=== PATIENT | male | born 1980 | race Caucasian/White ===

== ENCOUNTER 2022-01-14 06:26 | Inpatient (IN) | payer BC, SELFPAY ==
[2022-01-14] VITALS (13 sets, daily range): BP systolic 129–155; BP diastolic 78–106; PULSE 75–89; RESP 14–20; TEMP 36.2–36.8; O2SAT 96–100
--- NOTE | ~2022-01-14 | CT_ITS ---
EXAMINATION: CT abdomen pelvis wo con DATE: 01/14/2022 07:41 INDICATION: Left flank pain. TECHNIQUE: Computed tomography (CT) of the abdomen and pelvis was performed without intravenous contr ast. Automated exposure control and iterative reconstruction technique were employed. The dose-length product was 415.37 mGy-cm. COMPARISON: CT abdomen and pelvis 09/28/2018 FINDINGS: The visualized portions of the lung bases demonstrate mild atelectasis. No pleural effusion . The heart size is normal. No pericardial effusion. There is diffuse hepatic steatosis. The gallblad aleja, spleen, pancreas, adrenal glands, and kidneys are normal. There is a left inguinal hernia contai apolonia fat. The appendix is normal. There are no dilated loops of bowel. There is free gas around the s plenic flexure of the colon. There are no pathologically enlarged lymph nodes. There is no free intra peritoneal fluid. There is mild lumbar spondylosis and moderate thoracic spondylosis. IMPRESSION: 1. Free gas around the splenic flexure of the colon, consistent with perforation. 2. Left inguinal hernia containing fat. 3. Diffuse hepatic steatosis. Reviewed, dictated and finalized at location A. IMPRESSION: 1. Free gas around the splenic flexure of the colon, consistent with perforatio n. 2. Left inguinal hernia containing fat. 3. Diffuse hepatic steatosis.
--- NOTE | ~2022-01-14 | XR_ITS ---
EXAMINATION: XR abdomen/kub 1V DATE: 01/15/2022 05:49 INDICATION: Colon perforation. TECHNIQUE: A supine view of the abdomen on 3 radiographs was obtained. COMPARISON: CT abdomen and pelvis 01/14/22 FINDINGS: There are no dilated loops of bowel. There is extraluminal gas around splenic flexure of th e colon. There are phleboliths in the pelvis. IMPRESSION: 1. Extraluminal gas again seen around the splenic flexure of the colon. Reviewed, dictated and finalized at location A.
[2022-01-14 07:01] LABS: Basophils Absolute Auto 0.1 K/mm3 (0.0-0.1); Basophils Percent Auto 0.7 % (0.2-1.2); Eosinophils Absolute Auto 0.3 K/mm3 (0-0.3); Eosinophils Percent Auto 3.4 % (0-4.4); Hematocrit 45.8 % (42.0-52.0); Hemoglobin 15.4 g/dL (14.0-18.0); Immature Granulocyte Absolute 0.04 K/mm3 (0.00-0.031); Immature Granulocyte Percent A 0.5 % (0-0.5); Lymphocytes Absolute Auto 1.79 K/mm3 (0.9-3.2); Lymphocytes Percent Auto 23.7 % (18.3-44.2); Mean Corpuscular HGB Conc 33.6 g/dl (32-36); Mean Corpuscular Hemoglobin 29.1 pg (26-34); Mean Corpuscular Volume 86.6 fl (80-100); Mean Platelet Volume 10.4 fl (7.4-10.4); Monocytes Absolute Auto 0.5 K/mm3 (0.1-0.6); Monocytes Percent Auto 6.6 % (2.6-8.5); Neutrophils Absolute Auto 4.9 K/mm3 (1.3-6.7); Neutrophils Percent Auto 65.1 % (45.5-73.1); Platelet Count Result 248 k/mm3 (150-375); Red Blood Count 5.29 M/mm3 (4.6-6.20); Red Cell Distribution Width 12.5 % (11.5-14.5); White Blood Count 7.5 K/mm3 (4.5-10.0)
--- NOTE | 2022-01-14 07:06 | PC.NURSE ---
Report given to Elaina ZEPEDA
[2022-01-14 07:20] LABS: Appearance Urine Clear (Clear); Bilirubin Urine Negative (Negative); Blood Urine Negative (Negative); Color Urine Yellow (Yellow); Glucose Urine UA Negative (Negative); Ketones Urine Negative (Negative); Leukocyte Esterase Ur Negative LEU/UL (Negative); Nitrate Urine Negative (Negative); Protein Urine Negative (Negative); Urobilinogen Urine 0.2 mg/dL (<2.0)
[2022-01-14 07:22] LABS: Add Urine Microscopic? NO
[2022-01-14 07:24] LABS: Alanine Aminotransferase 40 U/L (6-50); Albumin Level 4.1 g/dL (3.5-5.1); Alkaline Phosphatase 69 U/L (38-126); Anion Gap 7 mmol/L (8-16); Aspartate Amino Transferase 36 U/L (17-59); Bilirubin,Total 0.5 mg/dL (0.2-1.3); Blood Urea Nitrogen 14 mg/dL (9-20); Carbon Dioxide 26 mmol/L (22-30); Chloride 106 mmol/L (98-107); Estimated CRCL calculation 93 ml/min; Estimated Glomerular Filt Rate > 60; Glucose 104 mg/dL (65-110); Potassium 4.1 mmol/L (3.4-5.0); Sodium 139 mmol/L (137-145)
--- NOTE | 2022-01-14 07:25 | ED.GENADULT ---
HPI - General Adult General Chief complaint: Unspecified Stated complaint: Side Pain radiates into testicle Time Seen by Provider: 01/14/22 06:56 History of Present Illness HPI narrative: 41-year-old male history of back pain presenting to the emergency department for evaluation of left flank pain that radiates around to his left lower quadrant and to his left testicle. Patient states pain has been intermittent over the last week. Patient denies any prior history of kidney stones. Patient denies any nausea vomiting diarrhea. Patient denies any blood in his urine. Patient does report previous history of H. pylori gastric ulcer. Related Data Home Medications Medication Instructions Recorded Confirmed No Home Medications 01/14/22 01/14/22 Allergies Allergy/AdvReac Type Severity Reaction Status Date / Time Penicillins Allergy Mild Rash Verified 01/14/22 09:27 Review of Systems Review of Systems: CONSTITUTIONAL: Denies fever, chills, or sweats. EYES: Denies visual changes, redness, or discharge. ENT: Denies rhinorrhea, congestion, sore throat, or otalgia. CARDIOVASCULAR: Denies chest pain, palpitations, or edema. RESPIRATORY: Denies cough or dyspnea. GASTROINTESTINAL: See HPI GENITOURINARY: See HPI SKIN: Denies rash or itching. MUSCULOSKELETAL: Denies back pain, joint pain, or myalgia. NEUROLOGIC: Denies headache, numbness, or weakness. PMFSH Past Medical History Medical History No pertinent past medical history Surgical History Surgical History History of inguinal hernia repair as an infant Family History Family History (Updated 01/14/22 @ 09:38 by Miranda Sanford RN) Grandparent Diabetes mellitus Hypertension Family history of coronary artery disease Social History Social History Smoking status: Never smoker Alcohol intake: current Drinks per week: 2 Substance use: never Occupation/Education: occupation Gender identity (if verbalized by the patient): Male Spiritual care concerns: No Exam Narrative: APPEARANCE: Well appearing, no pain, no distress, well-nourished. HEAD: normocephalic, atraumatic. EYES: PERRLA/EOMI, conjunctivae clear. NOSE: Normal no drainage NECK: Supple. No adenopathy, no masses. RESPIRATORY: Airway patent, respirations nonlabored. Clear to auscultation bilaterally, no rales, rhonchi, wheezing. CARDIOVASCULAR: Regular rate and rhythm without murmurs rubs or gallops. ABDOMINAL: Soft, nontender, nondistended, normal bowel sounds. No reproducible left CVA tenderness or left lower quadrant tenderness to palpation. No evidence of peritonitis MUSCULOSKELETAL: Moves all extremities. Strength/ROM intact, No edema, No calf tenderness. NEURO: Alert. Cranial nerves II through XII intact. Grossly intact SKIN: Warm, dry. Normal Color Course Course Emergency Course: CT showed evidence of colonic perforation. Patient denies any falls or injuries. Patient denies any prior history of diverticulitis. Patient denies any foreign bodies inserted rectally. Patient's last meal was at approximately 530 last night. Patient did have some water this morning. CT result was discussed with Dr. Holloway. Wanted the patient started on antibiotics. Anticipates patient will go to surgery later today. Dr. Holloway did want the hospitalist involved on the case. I discussed the case with Dr. Arellano and he is willing to see the patient as consult but does not want to admit the patient primarily. Vital Signs Vital signs: Vital Signs Temperature 97.2 F L 01/14/22 06:33 Pulse Rate 80 01/14/22 06:33 Respiratory Rate 20 01/14/22 06:33 Blood Pressure 155/105 H 01/14/22 06:33 Pulse Oximetry 100 01/14/22 06:33 Oxygen Delivery Room Air 01/14/22 06:33 Temperature 98.2 F 01/14/22 14:00 Pulse Rate 77 09
--- NOTE | 2022-01-14 07:33 | PC.NURSE ---
Patient to CT at this time.
--- NOTE | 2022-01-14 09:08 | PM.IMHP ---
H&P: HPI History of Present Illness Date/Time: 01/14/22 09:08 Chief Complaint: Left lower back pain Narrative: This is a 41-year-old male who presented to the ER for evaluation of left lower back pain. He reports about 10 days ago he went bowling with his son. After bowling, he noticed some left lower back soreness and pain that radiated to his left groin and down to his left testicle. Initially he thought it was a sore muscle. He began taking ibuprofen for the pain. This seemed to help. The left lower back pain was a dull pain that he reports felt like muscle soreness. The left groin and testicular pain was intermittent and sharp. He said it would come and go quickly. This seemed to be aggravated by movement or straining. He denies noticing a bulge in his left groin. He does have a history of an inguinal hernia repair as an he believes was bilaterally. Yesterday, he again went bowling. This seemed to aggravate his left lower back pain. His pain kept him awake throughout the night last night for the first time. He also reports the shooting left testicular pain was more severe and persistent than it had been over the past 10 days. Therefore, he came into the ER for evaluation. Labs were unremarkable with a normal white blood cell count. CT scan of the abdomen and pelvis showed free gas around the splenic flexure of the colon consistent with perforation, left inguinal hernia containing fat, and diffuse hepatic steatosis. Our service was contacted by the ED physician and the patient is now seen in the ER. At the time of my exam, he denies any abdominal pain, groin pain, or testicular pain. He has not received any pain medication while in the ER. His main complaint is left lower back soreness, but reports that is now mild. He denies any nausea, vomiting, fever, chills, or abdominal pain. His bowels have been moving normally. Denies any recent coughing or upper respiratory symptoms. No recent surgeries and denies any history of having a colonoscopy. Denies a history of diverticulitis. Review of Systems Review of Systems: All systems reviewed & are unremarkable except as noted in HPI and below Constitutional: Constitutional: Reports as per HPI, Reports no additional constitutional complaints, Denies chills, Denies fatigue, Denies fever(s), Denies poor appetite and Denies weakness Eyes: Eyes: Reports no additional eye complaints ENT: Reports system reviewed and no additional complaints, except as documented and Reports Normal hearing present Cardiovascular: Cardiovascular: Reports no additional cardiovascular complaints, Denies chest pain and Denies leg edema Respiratory: Respiratory: Reports no additional respiratory complaints, Denies cough and Denies dyspnea Gastrointestinal: Gastrointestinal: Reports as per HPI, Reports no additional gastrointestinal complaints, Denies abdominal pain, Denies melena, Denies bloating, Denies hematochezia, Denies constipation, Denies diarrhea, Denies nausea and Denies vomiting Genitourinary: Genitourinary: Reports no additional male genitourinary complaints, Reports as per HPI, Denies hematuria, Denies genital pain, Denies dysuria, Denies scrotal swelling, Reports testicular pain (L), Denies urinary frequency, Denies urinary hesitancy, Denies urinary incontinence and Denies urinary urgency Musculoskeletal: Musculoskeletal: Reports no additional musculoskeletal complaints, Reports back pain (Left lower back pain, aggravated with active ROM forward flexion of L hip), Denies deformity, Denies joint swelling, Denies limited range of motion, Denies numbness, Denies radiating pain into limb and Denies tingling Integumentary/Breasts: Skin/Breast: Reports system reviewed and no additional complaints, except as docu and Denies wounds Neurologic: Reports system reviewed and no additional complaints, except as documented, Denies dizziness, Denies focal weakness, Denies numbness and Denies tingling
[2022-01-14 09:24] LABS: Lactic Acid Reflex 0.9 mmol/L (0.7-2.0)
[2022-01-14 09:26] LABS: Prothrombin Time 13.1 Seconds (11.1-14.7)
[2022-01-14 09:27] LABS: Partial Thromboplastin Time 25.4 SECONDS (22.3-36.8)
--- NOTE | 2022-01-14 09:32 | ADMGEN ---
This patient, Maykel Riggs, was admitted to 2 Medical Room 240-01. Patient/family oriented to hospital policies and general routines including ID bracelet, bed and alarms, visiting hours, pain management, procedures, bathroom and other care routines, personal items, smoking policy, room service/diet, and visiting hours. Information on how to activate the Rapid Response Team has been discussed. Patient/Family are encouraged to report perceived risks to care and to ask questions if they do not understand what they are told or what they should do.
[2022-01-14] MEDS: SODIUM CHLORIDE 0.9% IV 1,000 ML 125 ML IV CONT ×2 (09:45→19:42)
[2022-01-14] MEDS: metroNIDAZOLE 500 MG/ISO 100ML 500 MG/100 ML BAG 100 MG IVPB ×2 (14:36→21:05)
[2022-01-15 04:49] VITALS: BP 135/85; PULSE 71; RESP 14; TEMP 36.6; O2SAT 98
[2022-01-15 05:03] LABS: Basophils Percent Auto 0.6 % (0.2-1.2); Eosinophils Absolute Auto 0.2 K/mm3 (0-0.3); Eosinophils Percent Auto 3.4 % (0-4.4); Hematocrit 44.1 % (42.0-52.0); Hemoglobin 14.9 g/dL (14.0-18.0); Immature Granulocyte Absolute 0.04 K/mm3 (0.00-0.031); Immature Granulocyte Percent A 0.6 % (0-0.5); Lymphocytes Absolute Auto 1.37 K/mm3 (0.9-3.2); Lymphocytes Percent Auto 20.1 % (18.3-44.2); Mean Corpuscular HGB Conc 33.8 g/dl (32-36); Mean Corpuscular Hemoglobin 29.2 pg (26-34); Mean Corpuscular Volume 86.3 fl (80-100); Mean Platelet Volume 9.9 fl (7.4-10.4); Monocytes Absolute Auto 0.5 K/mm3 (0.1-0.6); Monocytes Percent Auto 7.3 % (2.6-8.5); Neutrophils Absolute Auto 4.6 K/mm3 (1.3-6.7); Platelet Count Result 217 k/mm3 (150-375); Red Blood Count 5.11 M/mm3 (4.6-6.20); White Blood Count 6.8 K/mm3 (4.5-10.0)
[2022-01-15 05:11] LABS: Anion Gap 7 mmol/L (8-16); Blood Urea Nitrogen 10 mg/dL (9-20); Calcium 8.8 mg/dL (8.4-10.2); Carbon Dioxide 25 mmol/L (22-30); Chloride 110 mmol/L (98-107); Estimated CRCL calculation 103 ml/min; Estimated Glomerular Filt Rate > 60; Glucose 99 mg/dL (65-110); Potassium 4.5 mmol/L (3.4-5.0); Sodium 142 mmol/L (137-145)
[2022-01-15] MEDS: SODIUM CHLORIDE 0.9% IV 1,000 ML 125 ML IV CONT (05:11)
[2022-01-15] MEDS: metroNIDAZOLE 500 MG/ISO 100ML 500 MG/100 ML BAG 100 MG IVPB (05:12)
--- NOTE | 2022-01-15 09:37 | PM.DS ---
DS: Admitting Diagnosis Discharge Date 01/15/2022 Admitting Diagnosis Colon perforation Low back and groin pain Left inguinal hernia DS: Discharge Diagnosis Discharge Diagnosis (1) Colon perforation: Code(s): K63.1 - Perforation of intestine (nontraumatic) Status: Acute (2) Lower back pain: Code(s): M54.50 - Low back pain, unspecified Status: Acute (3) Reducible left inguinal hernia: Code(s): K40.90 - Unilateral inguinal hernia, without obstruction or gangrene, not specified as recurrent Status: Acute Assessment and Plan: Small left inguinal hernia containing fat suggested on CT, not palpable on exam. DS: Summary Hospital Course Reason for hospitalization: This is a 41-year-old man who presented to the ER yesterday with complaints left lower back pain radiating to his left groin. Workup in the ED showed evidence of free air around the splenic flexure of the colon suggestive of colon perforation on CT scan. Labs completely normal. Patient admitted for IV antibiotics and monitoring. Hospital Course: Patient was started on IV Levaquin and Flagyl, due to his penicillin allergy. He was completely asymptomatic and his abdominal exam was benign. Therefore, he was treated conservatively and monitored closely. Labs were repeated today and his white blood cell count remains normal. He is still not having any abdominal pain and his exam is again benign today. He was advanced to a low-fiber diet. Dietitian was consulted for educational a low-fiber diet. The patient is stable for discharge today. He will be discharged with another week oral antibiotics. Follow up in office in 2 weeks. Status at Discharge Functional status at discharge: independent ambulation Overall status at discharge: patient is progressing back to baseline Time Spent with Patient Time attestation: Total time spent providing and/or coordinating discharge services: Time spent: Less than 30 minutes Exam Const: General: comfortable and no acute distress Orientation/consciousness: patient oriented x3 Resp: Effort & Inspection: no respiratory distress Auscultation: clear to auscultation bilaterally Cardio: Rate: regular rate Rhythm: regular rhythm GI: Inspection: non-distended GI Palp: Yes Soft to palpation, No Tenderness to palpation present (GI), No Guarding due to palpation present (GI), No Hernia present and No Rebound tenderness present Auscultation: normal bowel sounds Neuro: General: moves all extremities and no focal motor deficits Extrem: General: normal to inspection Psych: Mental Status: mental status grossly normal Insight: Good insight present (Psych) Judgement: Good judgement present (Psych) DS: Data Data Completed and Pending Labs on day of discharge: Labs from last 24 hours 01/15/22 01/15/22 04:47 04:47 WBC 6.8 RBC 5.11 Hgb 14.9 Hct 44.1 MCV 86.3 MCH 29.2 MCHC 33.8 RDW 12.0 Plt Count 217 MPV 9.9 Immature Gran % (Auto) 0.6 H Neut % (Auto) 68.0 Lymph % (Auto) 20.1 [place] % (Auto) 7.3 Eos % (Auto) 3.4 Baso % (Auto) 0.6 Lymph # (Auto) 1.37 [place] # (Auto) 0.5 Eos # (Auto) 0.2 Baso # (Auto) 0.0 Abs Immat Gran (auto) 0.04 H Absolute Neuts (auto) 4.6 Absolute Nucleated RBC 0.0 Nucleated RBC % 0.0 Sodium 142 Potassium 4.5 Chloride 110 H Carbon Dioxide 25 Anion Gap 7 L BUN 10 Creatinine 0.90 Estim Creat Clear Calc 103 Estimated GFR > 60 Glucose 99 Calcium 8.8 Imaging Radiologist's impression: ITS Impressions Abdomen/Pelvis CT 01/14/22 07:45 IMPRESSION: 1. Free gas around the splenic flexure of the colon, consistent with perforation. 2. Left inguinal hernia containing fat. 3. Diffuse hepatic steatosis. Abdomen X-Ray 01/15/22 06:40 IMPRESSION: 1. Extraluminal gas again seen around the splenic flexure of the colon. Discharge Plan Discharge Attending physician on discharge
== END 2022-01-15 10:08 | disposition home or self-care (01) | DRG 395 ==
LOC: ANHED 08:07 → ANH2MED 08:57
PROVIDERS: Nurse Practitioner Family; Preventive Medicine Aerospace Medicine; Admitting Provider Surgery; Emergency Provider Emergency Medicine; PCP Family Medicine; Visit Provider Surgery
DX: K63.1 Perforation of intestine (nontraumatic) (principal); K40.90 Unilateral inguinal hernia, without obstruction or gangrene, not specified as recurrent; M54.50 Low back pain, unspecified; Z87.11 Personal history of peptic ulcer disease; Z88.0 Allergy status to penicillin
CPT/HCPCS: 36415; 74018; 74176; 80048; 80053; 81003; 83605; 85025; 85610; 85730; 99285; J1956; J7030

== ENCOUNTER → 2022-02-10 15:03 | Outpatient (CLI) | payer BC, SELFPAY ==
--- NOTE | ~2022-02-10 | CT_ITS ---
EXAMINATION: CT abdomen wo con DATE: 02/10/2022 15:18 INDICATION: Free air seen in the upper abdomen on prior examination TECHNIQUE: Computed tomography (CT) of the abdomen and pelvis was performed without intravenous contr ast. The dose-length product was 424.33 mGy-cm. Automated exposure control and iterative reconstructi on technique were employed. COMPARISON: CT dated 01/14/2022. FINDINGS: There is lingular atelectasis/scarring. No significant pleural or pericardial effusion. The re is persistent free air adjacent to the splenic flexure as well as the hepatic flexure and ascendin g colon. Moderate colonic fecal loading. Nonobstructive bowel gas pattern. No significant vascular ab normality. The liver, spleen, pancreas, adrenal glands and kidneys are unremarkable. No lymphadenopat hy. No free fluid. No abscess. IMPRESSION: 1. Small amount of persistent free intraperitoneal air adjacent to the splenic flexure, hepatic flexu re and ascending colon. No evidence for abscess. Reviewed, dictated and finalized at location B. IMPRESSION: 1. Small amount of persistent free intraperitoneal air adjacent to the splenic flexure, hepatic flexure and ascending colon. No evidence for abscess.
== END ==
PROVIDERS: PCP Family Medicine; Visit Provider Surgery
DX: K66.9 Disorder of peritoneum, unspecified (principal)
CPT/HCPCS: 74150

== ENCOUNTER 2022-02-23 00:53 | Day surgery (SDC) | payer BC, SELFPAY ==
[2022-02-06 15:05] VITALS: BMI 25.1
--- NOTE | 2022-02-23 10:46 | WPDANESEPPF ---
Anes - Initial Pre Proc Eval Procedure: Operation Date: 02/23/22 14:15 Proposed Procedures p Colonoscopy - Saul Dhillon MD Date/Time: 02/23/22 10:46 Surgeon: Saul Dhillon MD Pre Op Diagnosis: other specified disorders of peritoneum Patient Data Age: 41 Gender: M Height: 1.83 m Weight: 84 kg Allergies Allergy/AdvReac Type Severity Reaction Status Date / Time Penicillins Allergy Mild Rash Verified 02/23/22 12:26 Home Medications Medication Instructions Recorded Confirmed Type No Home Medications 02/02/22 02/23/22 History Patient hx anesthesia problems: none Family hx anesthesia problems: none Results Review: All pre-operative results and documents have been reviewed as part of the pre-operative evaluation. [facility] Past Medical History Medical History (Updated 02/23/22 @ 10:47 by José Miguel Correia DO) Colon perforation History of gastric ulcer Surgical History Surgical History History of inguinal hernia repair as an Family History Family History Grandparent Diabetes mellitus Hypertension Family history of coronary artery disease Social History Social History Smoking status: Never smoker Alcohol intake: current Drinks per week: 2 Substance use: never Substance use type: does not use Living arrangements: with family Gender identity (if verbalized by the patient): Male Spiritual care concerns: No Anes - Eval Final PreProcedure Day of Procedure 02/23/22 10:46 Patient weight: overweight Heart: regular rate and rhythm Lungs: clear to auscultation Airway: Mallampati scale class II Neurological: alert and oriented Last oral intake: >/= 8 hours ASA classification: III Emergent: no Anesthetic plan: proceed Anesthesia type and monitoring: general GIVS and standard monitoring Results Review: All pre-operative results and documents have been reviewed as part of the pre-operative evaluation. Informed Consent: The patient's anesthetic plan and its attendant risks and benefits were discussed with the patient/family/POA. Questions were solicited and answers provided to the satisfaction of the patient/family/POA.
[2022-02-23 12:28] VITALS: BP 147/104; PULSE 90; RESP 20; TEMP 36.7; O2SAT 97; BMI 24.0
[2022-02-23] MEDS: LACTATED RINGERS 1,000 ML 150 ML IV CONT (12:31)
--- NOTE | 2022-02-23 12:55 | PM.HPGS ---
History of Present Illness History of Present Illness Consent: Risks, benefits, and alternatives have been discussed and questions answered. Patient agrees to proceed with procedure. Chief complaint: other specified disorders of peritoneum Narrative: Maykel Riggs is a 41 year old male Who referred for investigation of an abnormal CT scan. His actually hospitalized recently with lower abdominal pain found to have free air suggestive of a perforation of the colon. It was thought that he may have had a spontaneous perforation near the splenic flexure Review of Systems Review of Systems: All systems reviewed & are unremarkable except as noted in HPI and below PMFSH Past Medical History Medical History Colon perforation History of gastric ulcer Surgical History Surgical History History of inguinal hernia repair as an Family History Family History Grandparent Diabetes mellitus Hypertension Family history of coronary artery disease Social History Social History Smoking status: Never smoker Alcohol intake: current Drinks per week: 2 Substance use: never Substance use type: does not use Living arrangements: with family Gender identity (if verbalized by the patient): Male Spiritual care concerns: No Meds Home Medications and Allergies Home Medications Medication Instructions Recorded Confirmed Type No Home Medications 02/02/22 02/23/22 History Allergies Allergy/AdvReac Type Severity Reaction Status Date / Time Penicillins Allergy Mild Rash Verified 02/23/22 12:26 Vital Signs Vital Signs - 24 hr 02/23/22 12:28 Temperature 36.7 C Pulse Rate 90 Respiratory Rate 20 Blood Pressure 147/104 H Pulse Oximetry 97 Oxygen Delivery Room Air Exam Const: General: alert Orientation/consciousness: patient oriented x3 Resp: Auscultation: clear to auscultation bilaterally Cardio: Rhythm: regular rhythm GI: GI Palp: Yes Soft to palpation and No Tenderness to palpation present (GI) Neuro: General: patient oriented x3 Assessment and Plan Assessment and plan (1) Abnormal CT scan, gastrointestinal tract: Code(s): R93.3 - Abnormal findings on diagnostic imaging of other parts of digestive tract Status: Acute Assessment and Plan: Colonoscopy with possible biopsy or polypectomy or cautery or injection of substances.
[2022-02-23 13:49] VITALS: BP 115/74; PULSE 73; RESP 19; O2SAT 100
[2022-02-23 13:59] VITALS: BP 108/79; PULSE 74; RESP 22; O2SAT 98
[2022-02-23 14:09] VITALS: BP 127/84; PULSE 78; RESP 15; O2SAT 99
== END 2022-02-23 14:17 | disposition home or self-care (01) ==
PROVIDERS: PCP Family Medicine; Visit Provider Internal Medicine Gastroenterology
PROC: 0DJD8ZZ Inspection of Lower Intestinal Tract, Via Natural or Artificial Opening Endoscopic (ICD-10-PCS; CPT 45378; principal; 2022-02-23 14:15)
DX: R93.3 Abnormal findings on diagnostic imaging of other parts of digestive tract (principal); Z87.11 Personal history of peptic ulcer disease
CPT/HCPCS: 45378; J2704; J7120

== ENCOUNTER 2024-08-15 18:19 | Emergency (ER) | payer BC, SELFPAY ==
--- NOTE | ~2024-08-15 | XR_ITS ---
HISTORY: pain, decreased mobility COMPARISON: None TECHNIQUE: 2 views of the right fourth digit were performed FINDINGS: No acute or subacute fracture. Joint spaces are preserved and alignment is maintained. Soft tissues are unremarkable without foreign body or significant calcification. Age-appropriate mineralization. IMPRESSION: No acute fracture, as detailed above. Reviewed, dictated and finalized at location A.
--- OUTSIDE RECORDS SUMMARY | 2024-08-15 18:21 | XMS_ITS | Clinical Summary ---
Author Organization [facility] Address [address] [place] [address] Care Team Providers Care Drill Press Operator Numerical Control Name Role Phone Lindsey Contreras MD Primary Care Provider [phone] Source Comments [facility],non-owned Affiliates and Associated Physician Practices is amultiple site organization consisting of ambulatory clinics and hospital sitesin [place], [place], [place] and [place]. This disclosure is being madepursuant to the Care Everywhere program and may not contain all information available regarding this patient. Last updated 18.[facility] Allergies Active Allergy Reactions Criticality Noted Date Comments Penicillins Rash Low 06/20/2014 Medications * Be aware that medications may not be up to date on this document. Alwaysverify current medications with the patient. Medication Sig Dispensed Refills Start Date End Date Status vitamin D, ergocalciferol, (DRISDOL) 03174 UNITS capsule 1 Cap every 7 days. 4 Cap 3 07/04/2014 Active enalapril (VASOTEC) 5 MG tablet Take 1 Tab by mouth once daily. 90 Tab 0 07/04/2014 Active Active Problems Problem Noted Date Diagnosed Date Vitamin D deficiency 07/04/2014 Hypertension 06/20/2014 Family History Medical History Relation Name Comments CAD (Coronary Artery Disease) Maternal Grandfather Hypertension Maternal Grandfather CAD (Coronary Artery Disease) Maternal Grandmother Hypertension Maternal Grandmother Hypertension Mother Relation Name Status Comments Brother Alive Father Alive Maternal Grandfather Maternal Grandmother Mother Alive Sister Alive Social History Tobacco Use Types Packs/Day Years Used Date Smoking Tobacco: Never Smokeless Tobacco: Never Alcohol Use Standard Drinks/Week Comments Yes 0 (1 standard drink = 0.6 oz pur e alcohol) Sex and Gender Information Value Date Recorded Sex Assigned at Not on file Gender Identity Not on file Sexual Orientation Not on file Last Filed Vital Signs Vital Sign Reading Time Taken Comments Blood Pressure 120/60 07/04/2014 5:15 PM [employer]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 ASSEMBLER Pulse 76 07/04/2014 5:15 PM [employer] ASSEMBLER Temperature 36.6 C (97.8 F) 07/04/2014 5:15 PM [employer] ASSEMBLER Respiratory Rate - - Oxygen Saturation - - Inhaled Oxygen Concentration - - Weight 89.4 kg (197 lb) 07/04/2014 5:15 PM [employer]UCTURE ASSEMBLER Height 184.2 cm (6' 0.52 ) 07/04/2014 5:09 PM CS T Body Mass Index 26.34 07/04/2014 5:09 PM [employer] ASSEMBLER Plan of Treatment Health Maintenance Due Date Last Done Comments COLOGUARD (AGES 45-75) - COL ON CA SCREENING 1979 COLON MONITORING 1979 COLONOSCOPY - COLON CA SCREENING 1979 CT COLONOGRAPHY - COLON CA SCREENING 1979 Colorectal Cancer Screening 1979 FIT - COLON CA SCREENING 1979 FLEX SIG - COLON CA SCREENING 1979 HIV SCREENING 07/24/1994 HEPATITIS C SCREENING 07/20/1997 DTAP/TDAP/TD VACCINES (1 - Tdap) 07/24/1998 HEPATITIS B VACCINE (1 of 3 - 19+ 3-dose series) 07/24/1998 LIPID TESTING 06/20/2019 06/20/2014 COVID-19 VACCINE (1 - 2023-2 5 season) 2024 DEPRESSION SCREENING 05/10/2024 INFLUENZA VACCINE (Season Ended) 2025 ZOSTER VACCINE (1 of 2) 07/24/2029 HIB VACCINE Aged Out No longer eligi ble based on patient's age to complete this topic HPV VACCINE Aged Out No longer eligi ble based on patient's age to complete this topic MENINGOCOCCAL (Group B) VACC INE SHARED DECISION-MAKING Aged Out No longer eligibl e based on patient's age to complete this topic MENINGOCOCCAL GROUPS A/C/Y/W VACCINE Aged Out No longer eligible b ased on patient's age to complete this topic PNEUMOCOCCAL VACCINE Aged Out No long er eligible based on patient's age to complete this topic Goals Goal Patient Goal Type Associated Problems Recent Progress Patient-Stated? Author Blood Pressure < 140/90 Blood Pressure 120/60(2014 5:15 PM [employer] ASSEMBLER) No Sheela Platt LPN Procedures Procedure Name Priority Date/Time Associated Diagnosis Comments LIPID PROFILE Routine 06/20/2014 5:23 PM [employer] ASSEM[employer]ER Laboratory examination ordered as part of a routine general medical examination from Last 3 Months or Most Recently Relevant to Health Maintenance Results * LIPID PROFILE (06/20/2014 5:23 PM [employer] ASSEMBLER) Cholesterol 117 100 - 199 mg/dL [facility] ACCOUNT BILL Triglycerides 108 0 - 149 mg/dL [facility] ACCOUNT BILL HDL Cholesterol 45 >39 mg/dL [facility] ACCOUNT BILL Comment: According to ATP-III Guidelines, HDL-C >59 mg/dL is considered a negative risk factor for CHD. VLDL Calculated 22 5 - 40 mg/dL [facility] ACCOUNT BILL LDL Calculated 50 0 - 99 mg/dL [facility] ACCOUNT BILL Comment NOT NEEDED [facility] ACCOUNT BILL Comment:Ancillary determined the test is not needed Blood specimen (specimen) BLOOD SPECIMEN / Unknown 06/20/2014 5:23 PM [employer] ASSEMBLER 06/20/2014 6:55 PM [employer] ASSEMBLER Narrative Resulting Agency Comment [facility] [address] [id number] Lindsey Contreras MD [facility] Organization Address City/State/ZIP Co de Phone Number [facility] ACCOUNT BILL from Last 3 Months or Most Recently Relevant to Health Maintenance Care Teams Drill Press Operator Numerical Control Relationship Specialty Start Date End Date Lindsey Contreras MD PCP - General Internal Medicine 06/20/14
[2024-08-15 18:27] VITALS: BP 146/90; PULSE 94; RESP 16; TEMP 36.1; O2SAT 100
[2024-08-15 21:05] VITALS: BP 154/102; PULSE 83; RESP 17; O2SAT 99
--- OUTSIDE RECORDS SUMMARY | 2024-08-15 21:13 | XMS_ITS | Clinical Summary ---
Author Organization [facility] [employer] Address [address] [place] [address] Care Team Providers Care Labels Molder Name Role Phone Lindsey Contreras MD Primary Care Provider Source Comments [facility] [employer],non-owned Affiliates and Associated Physician Practices is amultiple site organization consisting of ambulatory clinics and hospital sitesin [place], [place], [place] and [place]. This disclosure is being madepursuant to the Care Everywhere program and may not contain all information available regarding this patient. Last updated 18.[facility] [employer] Allergies Active Allergy Reactions Criticality Noted Date Comments Penicillins Rash Low 06/20/2014 Medications * Be aware that medications may not be up to date on this document. Alwaysverify current medications with the patient. Medication Sig Dispensed Refills Start Date End Date Status vitamin D, ergocalciferol, (DRISDOL) 84207 UNITS capsule 1 Cap every 7 days. [...] Comments Blood Pressure 120/60 07/04/2014 5:15 PM SKI PATROL OFFICER Pulse 76 07/04/2014 5:15 PM SKI PATROL OFFICER Temperature 36.6 C (97.8 F) 07/04/2014 5:15 PM SKI PATROL OFFICER Respiratory Rate - - Oxygen Saturation - - Inhaled Oxygen Concentration - - Weight 89.4 kg (197 lb) 07/04/2014 5:15 PM SKI PATROL OFFICER Height 184.2 cm (6' 0.52 ) 07/04/2014 5:09 PM CS T Body Mass Index 26.34 07/04/2014 5:09 PM SKI PATROL OFFICER Plan of Treatment Health Maintenance Due Date [...] < 140/90 Blood Pressure 120/60(2014 5:15 PM SKI PATROL OFFICER) No Sheela Platt LPN Procedures Procedure Name Priority Date/Time Associated Diagnosis Comments LIPID PROFILE Routine 06/20/2014 5:23 PM SKI PATROL OFFICER Laboratory examination ordered as part of a routine general medical examination from Last 3 Months or Most Recently Relevant to Health Maintenance Results * LIPID PROFILE (06/20/2014 5:23 PM SKI PATROL OFFICER) Cholesterol 117 100 - 199 mg/dL [facility] [...] BLOOD SPECIMEN / Unknown 06/20/2014 5:23 PM SKI PATROL OFFICER 06/20/2014 6:55 PM SKI PATROL OFFICER Narrative Resulting Agency Comment [facility] [address] [id number] Lindsey Contreras [facility] Organization Address City/State/ZIP Co de Phone Number [facility] ACCOUNT BILL from Last 3 Months or Most Recently Relevant to Health Maintenance Care Teams Labels Molder Relationship Specialty Start Date End Date Lindsey Contreras MD PCP - General Internal Medicine 06/20/14
--- NOTE | 2024-08-15 22:23 | ED.UPPEXIN ---
HPI - Extremity Injury (Upper) General Chief Complaint: Extremity Injury, Upper Stated Complaint: right hand injury Time Seen by Provider: 08/15/24 21:05 Source: patient Mode of arrival: ambulatory Limitations: no limitations History of Present Illness HPI narrative: Patient is a 44-year-old male who presents the ED with report of right 4th digit pain. Patient reports he accidentally got his right 4th digit caught in a piece of machinery at work 1.5 weeks ago. States he was doing fine initially. 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 Since then, has had increased swelling and pain in his right 4th digit. Denies numbness. He did sustain a small abrasion from the initial injury which he bandage himself at home and has since healed. Tetanus is up-to-date. Related Data Allergies Allergy/AdvReac Type Severity Reaction Status Date / Time Penicillins Allergy Mild Rash Verified 12/07/23 16:30 Review of Systems Review of Systems: All systems reviewed & are unremarkable except as noted in HPI. All systems reviewed & are unremarkable except as noted in HPI and below PMFSH Past Medical History Medical History Screening for prostate cancer Screening for hyperlipidemia Lipid screening Encounter for screening for malignant neoplasm of prostate History of gastric ulcer Colon perforation Surgical History Surgical History History of inguinal hernia repair as an Family History Family History Grandparent Diabetes mellitus Hypertension Family history of coronary artery disease Father No problems noted. Mother Hypertension Sibling Heart disease Hypertension Social History Social History Smoking status: Never smoker Second hand tobacco smoke exposure: Yes Alcohol intake: former Drinks per week: 2 Substance use: never Substance use type: does not use Lack of Transportation: No Lack of Food: Never True Current Housing: I Have Housing Concerned About Future Housing: No Difficulty Paying Gas/Electric Bills: No Difficulty Paying for Meds: No Currently Unemployed: No Education: Trade/Vocational Certificate Difficulty w/ Childcare or Family Care: No Living arrangements: alone Occupation/Education: occupation 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 HEAD: Normocephalic, atraumatic. RESPIRATORY: Airway patent, respirations nonlabored. CARDIOVASCULAR: Regular rate and rhythm. Radial pulses intact. MUSCULOSKELETAL: Moves all extremities. No gross deformities. Mild tenderness to palpation over right 4th MCP region with small healing abrasion. No significant tenderness throughout D IP or PIP joint of right 4th digit. Minimal swelling throughout finger. Sensation intact. Capillary refill intact. SKIN: Warm, dry, normal color. NEURO: A&O X3. Speech clear. PSYCHIATRIC: Appropriate mood and affect. Normal interaction. Course Vital Signs Vital signs: Vital Signs Temperature 97 F L 08/15/24 18:27 Pulse Rate 94 08/15/24 18:27 Respiratory Rate 16 08/15/24 18:27 Blood Pressure 146/90 H 08/15/24 18:27 Pulse Oximetry 100 08/15/24 18:27 Temperature 97 F L 08/15/24 18:27 Pulse Rate 83 08/15/24 21:05 Respiratory Rate 17 08/15/24 21:05 Blood Pressure 154/102 H 08/15/24 21:05 Pulse Oximetry 99 08/15/24 21:05 MDM - Extremity Injury (Upper) MDM Narrative Medical decision making narrative: Patient?s injury is consistent with musculoskeletal etiology. No signs of neurologic or vascular compromise on physical examination. Compartments are soft without signs of compartment syndrome. XR of finger negative for fracture. Pain is consistent with finger contusion/sprain. Patient is felt to be stable for discharge home and further outpatient management and treatment. Advised to michelle tape fingers, rice therapy, Tylenol and ibuprofen as needed for pain. Offered a metal finger splint, however patient politely declined. Will refer to Hand surgery for further evaluation as needed. Given return precautions. Discharged in stable condition. Medical Records Attestation: I reviewed the patient's medical records. Imaging Data Attestation: I personally reviewed and interpreted this imaging study as follows: Radiologist's impression: ITS Impressions Finger X-Ray 08/15/24 19:13 IMPRESSION: No acute fracture, as detailed above. Discharge Plan Discharge Clinical Impression: Contusion of finger of right hand Qualifiers: Encounter type: initial encounter Finger: ring finger Damage to nail status: without damage Qualified Code(s): S60.041A - Contusion of right ring finger without damage to nail, initial encounter Patient Disposition: Home Condition: Stable Instructions: Antibiotic Form, Finger Sprain (ED) Additional Instructions: Your imaging here did not show any evidence of fracture. Recommend michelle taping fingers together to provide support. Utilize Tylenol, ibuprofen, ice as needed for pain. Follow-up with Hand surgery for further evaluation if needed. Return to the ED if you experience worsening or severe pain, recurrent injury, numbness, significant swelling, or any other symptoms of concern. Patient Language: Citizen [place] Prescriptions: No Action lisinopril 5 mg tablet 5 mg PO DAILY Qty: 90 3RF azithromycin 250 mg tablet See Rx Instructions PO .COMPLEX Qty: 6 0RF Rx Instructions: take 500 mg today (day 1), then 250 mg for 4 days (days 2-5) PO Follow-up/Referrals: Edmundo Martines MD [Physician] - (HAND/PLASTIC SURGERY) Braxton Villarreal MD [Primary Care Provider] - Time of Disposition: 22:24
== END 2024-08-15 22:30 | disposition home or self-care (01) ==
PROVIDERS: Emergency Provider Physician Assistant; PCP Family Medicine
DX: S60.041A Contusion of right ring finger without damage to nail, initial encounter (principal); W31.9XXA Contact with unspecified machinery, initial encounter
CPT/HCPCS: 73140; 99283